=== PATIENT | female | born 1930 | race Caucasian/White ===

== ENCOUNTER 2016-11-10 19:47 | Inpatient (IN) | payer OTHER ==
[~2016-11-10] VITALS: Ht 160 cm; Wt 54.4 kg
--- NOTE | ~2016-11-10 | EKG ---
[address] [address] ELECTROCARDIOGRAM REPORT Name: GLENNA BLAIR Room #: [facility] IN M.R.#: [id number] Admission: 11/10/16 Attend Phys: Estela Pratt Discharge: 11/13/16 Date of : 30 Report #: [id number] THIS REPORT FOR: //name// [facility] Test Date: 2016-11-10 Test Time: 20:14:20 Pat Name: Glenna Blair Department: Room: [facility] Gender: F [employer] Helper Machine: Gracia dexter : 1930 Requested By: Deirdre Cazares Order Number: [id number] MD: Alfredo Sal Measurements Intervals [place] Rate: 71 P: 58 SD: 177 QRS: 38 QRSD: 87 T: 21 QT: 415 QTc: 451 Interpretive Statements Sinus rhythm Nonspecific ST segment abnormality No previous ECG available for comparison Electronically Signed On 11-11-2016 12:53:04 CDT by Alfredo Sal [email or web address] <ELECTRONICALLY SIGNED> By: Alfredo Sal MD, [facility] 11/11/16 1253 13 13 Alfredo Sal MD, FACC /EPI
--- NOTE | ~2016-11-10 | D ---
[facility] [place] [address] DISCHARGE SUMMARY Name: CARMEN JEAN Room #: 407-P [facility] IN M.R.#: [id number] Admission: 11/10/16 Attend Phys: Estela Pratt Discharge: 11/13/16 Date of : 30 Report #: [id number] THIS REPORT FOR: //name// CC: Francis Weber FINAL DIAGNOSIS: 1. Left flank pain. HOSPITAL COURSE: She was admitted with left flank pain. Studies were obtained and she was seen by Dr. Rudd. Urine culture just grew normal multi-bacteria and no treatment was . There was a question of a left pulmonary nodule on CT of the abdomen that was unremarkable. CT of the chest was obtained. Please see that result. There seemed to be some chronic changes in the left lower lobe, but no distant mass or lymphadenopathy was identified. Dr. Rudd's recommendation was to obtain study from [facility] done in the past regarding her remote history of left renal cell carcinoma, nephrectomy and compare for any changes. He felt these are likely more chronic in nature. Her pain was improved with physical therapy and as needed doses of hydrocodone. PHYSICAL EXAMINATION: GENERAL: On the day of discharge, she was awake and alert. VITAL SIGNS: Stable. LUNGS: Clear. HEART: Regular. ABDOMEN: Soft. She had some mild tenderness in the soft issue of the left flanks between the ribs and iliac wing. EXTREMITIES: Showed no edema. DISPOSITION: Will be discharged to home with home health. DIET AND ACTIVITY: As tolerated. FOLLOWUP: With Dr. Weber and Dr. Rudd in 2 weeks. MEDICATIONS: Only new medication is hydrocodone 5 mg p.r.n. pain. <ELECTRONICALLY SIGNED> By: Jesse Zelaya MD 11/14/16 1003 0912 1941 Jesse Zelaya MD /nt
--- NOTE | ~2016-11-10 | H ---
[facility] [place] [address] HISTORY AND PHYSICAL Name: CARMEN JEAN Estela Room #: 407-P [facility] IN M.R.#: [id number] Admission: 11/10/16 Attend Phys: Estela Pratt Discharge: 11/13/16 Date of : 30 Report #: [id number] THIS REPORT FOR: //name// CC: Francis Weber HISTORY OF PRESENT ILLNESS: This is an 86-year-old female with known history remotely of hypernephroma and has had some suspicious areas off and on over the last few years and maybe even some lung nodules, but due to her age, we did not proceed with biopsy or further intervention. She has been doing very well up until yesterday when she really had the relatively sudden onset of left chest pain. There was no trauma associated with this and the pain became so severe that she came to the emergency room and was subsequently admitted. There were no other associated symptoms. PAST MEDICAL HISTORY: Significant for hypertension. She has had renal cell carcinoma many years ago. She has had a hysterectomy in the past. MEDICATIONS: Well documented in the record. REVIEW OF SYSTEMS: Negative. FAMILY HISTORY: Negative. SOCIAL HISTORY: She is now, her recently. PHYSICAL EXAMINATION: GENERAL: Shows her to be awake, alert and oriented. She is in no distress. HEENT: Otherwise, negative. NECK: Supple, without thyromegaly or adenopathy. CHEST: Clear. On more detailed examination of her left chest, she had point tenderness in the posterior ribs in the lower aspect of her ribcage. CARDIOVASCULAR EXAMINATION: Shows a regular rate and rhythm, without murmur. ABDOMEN: Soft and nontender. EXTREMITIES: No cyanosis, clubbing or edema. NEUROLOGICAL EXAMINATION: Nonfocal. LABORATORY DATA: EKG was negative. Laboratory parameters were normal. Chest x-ray was not done, but a CT image showed the left nephrectomy and left adrenalectomy findings with an area in her left lung suspicious for pulmonary metastasis. 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 PLAN: Left rib detailed films, chest x-ray and we will involve the oncology [place] [id number] HISTORY AND PHYSICAL Name: CARMEN JEAN Estela Room #: 407-P [facility] IN .R.#: [id number] Admission: 11/10/16 Attend Phys: Estela Pratt Discharge: 11/13/16 Date of : 30 Report #: [id number] team and I have to set up a plan as to whether or not she needs biopsy or whether we are going to proceed more of on a palliative care programme. <ELECTRONICALLY SIGNED> By: Francis Weber MD 11/24/16 1037 [facility] 1305 Francis Weber MD /tomas
--- NOTE | ~2016-11-10 | HC ---
[facility] [place] [address] CONSULTATION Name: CARMEN JEAN Room #: 407-P [facility] IN M.R.#: [id number] Admission: 11/10/16 Attend Phys: Estela Pratt Discharge: 11/13/16 Date of : 30 Report #: [id number] THIS REPORT FOR: //name// CC: Gonzalo Ruano MD REASON FOR CONSULTATION: History of kidney cancer and flank pain. HISTORY OF PRESENT ILLNESS: The patient is a very pleasant 86-year-old female who I last saw on 07/24/2016. The patient has a several, I think about, 3-5 day history of flank pain, some on the right, now most recently on the left that has been fairly sharp in nature when she moves in certain direction. She is not aware of any trauma and this was fairly sudden onset. No fevers, no chills. No nausea, no vomiting, no bowel or bladder difficulties. She does feel that her abdomen is little bit more poochy lately. She has been a bit more gassy as far as passing gas from below, not belching, though she has felt otherwise pretty good. Her back in August for which we expressed our condolences. He had had some ostomy troubles and bladder difficulties. PAST MEDICAL HISTORY: Notable for history of left-sided kidney mass which was resected 01/02/2011 with a hand assisted laparoscopic left radical nephrectomy. 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 Margins were free. This is a T3a Nx M0 cancer. The patient then had a CT chest, abdomen and pelvis at [facility] on 07/23/2014. With comparison I believe to 2011, pancreas was described as normal. There were 3 overt hypervascular lesions arising within the pancreas at that time, the largest measuring 16 mm and other is 10 mm. On 08/30/2015, the patient had a repeat CT abdomen and pelvis showing the hypervascular lesions which had increased in size. There was also thought to be some ductal dilatation at that time. The patient met with the surgeon on 12/01/2015. The patient was not interested in surgical intervention at that time. I had seen the patient for the first time on 12/15/2015 and at that time we talked about maybe whether to do an endoscopic ultrasound and biopsy or watch and wait. At that time, because of her 's health issues they wished to wait and watch. The patient then had reviewed her films with her on 02/21/2016 and then again on 06/26/2016, another CAT scan was performed. This showed that the 4 hyperenhancing pancreatic lesions were unchanged in size though there was a small lung lesion, which I think had gone from 1 cm to now 1.4. This was reviewed with the patient and her family on 07/24/2016 and again at that time, they did not wish any intervention. PAST MEDICAL HISTORY: Also notable for hypertension. SOCIAL HISTORY: The patient had not been a smoker or drinker. Recently her had . FAMILY HISTORY: Noncontributory. [facility] [address] [place] [address] CONSULTATION Name: CARMEN JEAN Room #: 407-P [facility] IN M.R.#: [id number] Admission: 11/10/16 Attend Phys: Estela Pratt Discharge: 11/13/16 Date of : 30 Report #: [id number] PHYSICAL EXAMINATION: GENERAL: The patient appears her stated age. Mood, she is very pleasant and alert. She does wince in pain when the pain grabs her on the left flank. NEUROLOGIC: She is moving all extremities though she describes being weak. HEENT: Oropharynx is clear. LUNGS: Have clear respirations. HEART: Regular rate. LYMPHATICS: No enlarged lymph nodes in the supraclavicular, cervical, axillary region. The patient does not appear to have any pain on compression of the ribs anterior or transversely. Does have some discomfort on very light touch of the left lower flank which has hardly not even touched the ribs. Of note, the patient had recent plain films of the ribs, which have not revealed any cracks or destructive lesions. ABDOMEN: Soft, little bit distended but not much. EXTREMITIES: Without clubbing, cyanosis. VITAL SIGNS: Height is 5 feet 3 inches, which is 160 cm, weight which is 120 pounds or 54.7 kilograms. Blood pressure is 126/57, O2 sat 96%, respirations 16, pulse 63 and temperature is 97.9. LABORATORY DATA: Here have a CBC without white count of 6.6, hemoglobin 12.7, platelets of 276, fairly normal differential. BNP was fairly normal with a creatinine of 1.2, alk phos of 145. The CT of abdomen and pelvis done here talked about the surgical changes from the left nephrectomy. Note that she had no prior films done here. We will get our [facility] films for comparison. I have also ordered a CT chest to better take a look at the lung lesion. Urinalysis did show 16-25 moderate white cells, 0-3 squamous cells, few bacteria. I believe that the cultures now are growing E. coli, beta strep group B and also enterococcus. Chest x-ray, nonspecific changes other than degenerative changes. MEDICATIONS: Here in the hospital currently include Lovenox 30 mg subcutaneous, hydrocodone 1 tab q. 4 p.r.n., fentanyl IV p.r.n. ASSESSMENT AND PLAN: 1. History of left renal cell carcinoma resected, may be recurrent, not biopsy proven, but does have lesions in the pancreas and the lung. We will order CT scan from for comparison to one done over the weekend. We will also order CT chest with evaluation of chest. We may need to get scan from outside from [facility] from 07/23/2014 for comparison. 2. Left flank pain maybe muscular in nature. We will ask physical therapy to see the patient. We will also ask for heating pad. May give consideration to Flexeril 2.5 mg b.i.d., but we will defer to admitting team. 3. Hypertension. Meds as needed. [facility] [address] [place] [address] CONSULTATION Name: CARMEN JEAN Room #: 407-P [facility] IN M.R.#: [id number] Admission: 11/10/16 Attend Phys: Estela Pratt Discharge: 11/13/16 Date of : 30 Report #: [id number] 4. Two bacteria in urine. We will defer to others whether this needs treatment. We will follow with you. <ELECTRONICALLY SIGNED> By: Rodriguez Rudd MD 11/13/16 0739 0827 1231 Rodriguez Rudd MD /tomas
[~2016-11-10 19:47] MED LIST: BACITRACIN15 GM TOP; CARDIZEM CD120 MG PO; COUMADIN 2 MG TA2 M1 PO; FOSAMAX 70 MG T70 M1 PO; KAPVAY0.1 MG PO; PERCOCET 5-3251 EACH PO; TOPICORT 0.25%15 G1 TOP; TRIAMCINOLONE TOP; TUMS PO; VITAMIN D1000 UNI1 PO
[2016-11-10 19:57] VITALS: BP 147/75
[2016-11-10 20:51] LABS: ABSOLUTE NEUTROPHILS 4.3 thou/uL (1.4-8.2); BASOPHILS 0.8 % (0.0-2.0); EOSINOPHILS 1.4 % (0.0-3.0); HEMATOCRIT 37.5 % (37.0-47.0); HEMOGLOBIN 12.7 gm/dL (12.0-15.0); LYMPHOCYTES 22.9 % (24.0-44.0); MCH 30.7 pg (26.0-34.0); MCHC 33.8 g/dL (28.0-37.0); MCV 90.9 fL (80.0-100.0); MONOCYTES 9.1 % (1.0-8.0); PLATELET COUNT 276 thou/uL (150-400); POLYS 65.8 % (36.0-66.0); RBC 4.13 mil/uL (4.20-5.00); RDW 14.2 % (10.5-14.5); WBC 6.6 thou/uL (4.0-11.0)
[2016-11-10 21:01] LABS: MANUAL DIFF NO
[2016-11-10 21:10] LABS: ANION GAP 7 mmol/L (7-16); BUN 29 mg/dL (7-18); CALCIUM 9.3 mg/dL (8.5-10.1); CHLORIDE 107 mmol/L (98-107); CO2 28 mmol/L (21-32); CREATININE 1.2 mg/dL (0.6-1.0); GLUCOSE 142 mg/dL (74-106); SODIUM 142 mmol/L (136-145)
[2016-11-10 21:14] LABS: ALBUMIN 3.6 g/dL (3.4-5.0); ALKALINE PHOSPHATASE 145 U/L (46-116); DIRECT BILIRUBIN < 0.1 mg/dL (<0.1-0.3); MAGNESIUM 1.9 mg/dL (1.8-2.4); SGOT 23 U/L (15-37); SGPT 31 U/L (30-65); TOTAL BILIRUBIN 0.3 mg/dL (<0.1-1.0); TOTAL PROTEIN 7.1 g/dL (6.4-8.2)
[2016-11-11 00:11] VITALS: BP 143/62
[2016-11-11 01:10] VITALS: BP 133/69
[2016-11-11 04:40] VITALS: BP 128/64
[2016-11-11 05:18] LABS: URINE BILIRUBIN NEGATIVE (Negative); URINE BLOOD NEGATIVE (Negative); URINE COLOR YELLOW; URINE GLUCOSE-RANDOM* NEGATIVE (Negative); URINE KETONES NEGATIVE (Negative); URINE LEUKOCYTES-REFLEX 2+ (Negative); URINE PROTEIN (DIPSTICK) NEGATIVE (Negative); URINE SPECIFIC GRAVITY 1.015 (1.003-1.035); URINE UROBILINOGEN 0.2 E.U./dl (0.2-1.0)
[2016-11-11 05:29] LABS: CASTS None Seen /LPF (None Seen); SQUAMOUS None Seen /LPF (0-3)
[2016-11-11 05:30] LABS: CRYSTALS None Seen /LPF (None Seen); URINE RBC None Seen /HPF (0-2); WBC CLUMPS Few (None Seen)
[2016-11-11 07:47] VITALS: BP 137/59
[2016-11-11 16:18] VITALS: BP 117/72
[2016-11-11 20:05] VITALS: BP 121/61
[2016-11-12 04:13] VITALS: BP 126/57
[2016-11-12 08:50] VITALS: BP 136/64
[2016-11-12 15:47] VITALS: BP 117/62
[2016-11-12 19:40] VITALS: BP 126/75
[2016-11-13 06:10] VITALS: BP 125/49
[2016-11-13 08:28] VITALS: BP 134/66
[2016-11-13] MEDS ORDERED: HYDROCODON-ACE1 EAC7 PO (09:07)
[2016-11-13 11:03] VITALS: BP 134/66
[2016-11-13 12:45] VITALS: BP 134/66
== END 2016-11-13 11:44 | disposition home or self-care (01) | DRG 392 ==
LOC: ER 19:47 → EROBS 23:25 → 4N 23:25
PROVIDERS: Emergency Medicine; Internal Medicine
DX: R10.9 Unspecified abdominal pain (principal); I10 Essential (primary) hypertension; Z90.5 Acquired absence of kidney; Z90.710 Acquired absence of both cervix and uterus; Z85.528 Personal history of other malignant neoplasm of kidney
CPT/HCPCS: 10091

== ENCOUNTER 2016-12-06 22:07 | Observation (INO) | payer OTHER ==
[~2016-12-06] VITALS: Ht 160 cm; Wt 57.6 kg
--- NOTE | ~2016-12-06 | CNG ---
[facility] [address] [place] [address] CYTO-NONGYN REPORT PROCEDURE Name: CARMEN JEAN Room #: 545-P [facility] Alannah BillyR.#: [id number] Admission: 12/07/16 Date of : 30 Discharge: Report #: [id number] Path Case #: [id number] PATHOLOGY REPORT DRAFT COLLECTION DATE: 12/07/2016 RECEIVED DATE: 12/07/2016 SPECIMEN(S) RECEIVED: A.Right knee fluid aspiration
--- NOTE | ~2016-12-06 | H ---
[facility] [place] [address] HISTORY AND PHYSICAL Name: CARMEN JEAN Room #: 545-P [facility]#: [id number] Admission: 12/07/16 Attend Phys: Sheron Oliva MD Discharge: Date of : 30 Report #: [id number] THIS REPORT FOR: //name// CC: Francis Oliva DATE OF SERVICE: 12/07/2016 CHIEF COMPLAINT: Right knee pain. HISTORY OF PRESENT ILLNESS: The patient is an 86-year-old female who fell on her bathtub a week ago and was complaining of knee pain. She had some swelling and pain in her knee and was really unable to stand or walk. She had some pain in the right side of her lower back, but that seems improved. Symptoms just got worse yesterday and she was really unable to bear weight due to pain and was directed to the emergency room. X-rays are unremarkable. PAST MEDICAL HISTORY: Hypertension, renal cell carcinoma with a previous left nephrectomy. She has had a hysterectomy. FAMILY HISTORY: Noncontributory. SOCIAL HISTORY: She lives alone. No chronic alcohol or tobacco use. ALLERGIES: No known drug allergies. MEDICATIONS: Calcium, Percocet, clonidine, and Coumadin. REVIEW OF SYSTEMS: She denies headache, chest pain, shortness of breath, abdominal pain, nausea, vomiting, diarrhea, constipation, dysuria, or syncope. OBJECTIVE: VITAL SIGNS: Per the nursing note. GENERAL: She is awake and alert, in no distress. LUNGS: Clear. HEART: Regular. ABDOMEN: Soft, normoactive bowel sounds. EXTREMITIES: There is a soft effusion on the right knee, no bridging. NEUROLOGIC: Global strength 3/5 throughout. ASSESSMENT: 1. Acute right knee pain with effusion. 2. Osteoarthritis of the right knee. 3. Acute low back pain. 4. Accidental fall. 5. Hypertension. [facility] [address] [place] [address] HISTORY AND PHYSICAL Name: CARMEN JEAN Room #: 545-P [facility]#: [id number] Admission: 12/07/16 Attend Phys: Sheron Oliva MD Discharge: Date of : 30 Report #: [id number] PLAN: I will ask orthopedic service to consider of the right knee and/or steroid injection. <ELECTRONICALLY SIGNED> By: Jesse Zelaya MD 12/07/16 1630 0911 0947 Jesse Zelaya MD /nt
[~2016-12-06 22:07] MED LIST changes: +HYDROCODON-ACE1 EAC7 PO
[2016-12-06 22:18] VITALS: BP 114/68
[2016-12-07 02:07] VITALS: BP 126/71
[2016-12-07 02:11] LABS: ABSOLUTE NEUTROPHILS 4.6 thou/uL (1.4-8.2); BASOPHILS 0.9 % (0.0-2.0); EOSINOPHILS 1.3 % (0.0-3.0); HEMATOCRIT 33.8 % (37.0-47.0); HEMOGLOBIN 11.5 gm/dL (12.0-15.0); LYMPHOCYTES 22.1 % (24.0-44.0); MCH 30.8 pg (26.0-34.0); MCHC 33.9 g/dL (28.0-37.0); MCV 90.9 fL (80.0-100.0); MONOCYTES 11.5 % (1.0-8.0); PLATELET COUNT 252 thou/uL (150-400); POLYS 64.2 % (36.0-66.0); RBC 3.72 mil/uL (4.20-5.00); RDW 13.7 % (10.5-14.5); WBC 7.2 thou/uL (4.0-11.0)
[2016-12-07 02:15] LABS: MANUAL DIFF NO
[2016-12-07 02:17] LABS: CALCIUM 9.7 mg/dL (8.5-10.1); CREATININE 1.2 mg/dL (0.6-1.0); POTASSIUM 3.8 mmol/L (3.5-5.1)
[2016-12-07 04:50] VITALS: BP 110/62
[2016-12-07 05:50] VITALS: BP 178/83
[2016-12-07 07:21] VITALS: BP 120/68
[2016-12-07 14:25] LABS: COLOR YELLOW; TOTAL VOLUME 60 mL
[2016-12-07 14:26] LABS: BF RBC 3626; CLARITY CLOUDY
[2016-12-07 14:27] LABS: BF NUCLEATED CELLS 5187; MANUAL DIFF YES
[2016-12-07 15:38] LABS: BF MACROPHAGE 8; BF NEUTROPHILS 86
[2016-12-07 16:09] VITALS: BP 111/64
[2016-12-07 19:41] VITALS: BP 112/64
[2016-12-08 05:16] VITALS: BP 134/71
[2016-12-08] MEDS ORDERED: PREDNISONE 20 M20 M1 PO (07:48)
[2016-12-08] MEDS ORDERED: HYDROCODON-ACE1 EAC7 PO (07:48)
[2016-12-08] MEDS ORDERED: ACETAMINOPHEN325 M1 PO (07:48)
[2016-12-08 07:54] VITALS: BP 119/50
[2016-12-08 09:48] VITALS: BP 119/50
== END 2016-12-08 14:00 ==
LOC: ER 22:07 → EROBS 12-07 01:33 → 5S 12-07 02:11
PROVIDERS: Emergency Medicine; Internal Medicine
DX: M17.11 Unilateral primary osteoarthritis, right knee (principal); R26.9 Unspecified abnormalities of gait and mobility; I10 Essential (primary) hypertension; M54.5 Low back pain; Z79.899 Other long term (current) drug therapy; Z85.528 Personal history of other malignant neoplasm of kidney

== ENCOUNTER 2018-07-18 21:51 | Emergency (ER) | payer OTHER ==
[~2018-07-18] VITALS: Ht 157.5 cm; Wt 54.4 kg
[~2018-07-18 21:51] MED LIST changes: +ACETAMINOPHEN325 M1 PO; +PREDNISONE 20 M20 M1 PO
[2018-07-18] MEDS ORDERED: COZAAR 25 MG TA25 M1 PO (22:15)
[2018-07-18 22:53] LABS: HEMATOCRIT 39.9 % (37.0-47.0); HEMOGLOBIN 13.5 gm/dL (12.0-15.0); MCH 30.9 pg (26.0-34.0); MCHC 33.9 g/dL (28.0-37.0); MCV 91.3 fL (80.0-100.0); PLATELET COUNT 274 thou/uL (150-400); RBC 4.37 mil/uL (4.20-5.00); RDW 14.4 % (10.5-14.5)
[2018-07-18 23:00] LABS: CALCIUM 9.5 mg/dL (8.5-10.1); CREATININE 1.4 mg/dL (0.6-1.0); POTASSIUM 3.6 mmol/L (3.5-5.1)
[2018-07-18 23:18] LABS: ABSOLUTE NEUTROPHILS 5.8 thou/uL (1.4-8.2)
[2018-07-18 23:20] LABS: PLATELET ESTIMATE NORMAL
[2018-07-19 00:40] LABS: CLARITY CLOUDY; COLOR YELLOW; TOTAL VOLUME 30 mL
[2018-07-19 01:47] LABS: BF NUCLEATED CELLS 2495; BF RBC 156 /uL; SOURCE KNEE JOINT
[2018-07-19 02:02] LABS: SOURCE KNEE JOINT
[2018-07-19 02:05] LABS: BF CRYSTALS No Crystals seen
[2018-07-19 02:12] VITALS: BP 140/63
[2018-07-19 02:29] LABS: BF MACROPHAGE 9; BF NEUTROPHILS 87
== END 2018-07-19 02:26 | disposition home or self-care (01) ==
LOC: ER 21:51
PROVIDERS: Student in an Organized Health Care Education/Training Program
DX: M25.461 Effusion, right knee (principal); I10 Essential (primary) hypertension; Z85.528 Personal history of other malignant neoplasm of kidney; Z90.5 Acquired absence of kidney; Z90.710 Acquired absence of both cervix and uterus

== ENCOUNTER 2019-07-30 13:18 | Inpatient (IN) | payer OTHER ==
[~2019-07-30] VITALS: Ht 157.5 cm; Wt 52.2 kg
[~2019-07-30 13:18] MED LIST changes: +COZAAR 25 MG TA25 M1 PO
[2019-07-30 13:20] VITALS: BP 145/74
--- NOTE | 2019-07-30 14:56 | NUR ---
PERIPHERAL STICK DONE AND BLOOD SENT TO LAB IV LINE UNABLE TO DRAW BLOOD
[2019-07-30 15:04] LABS: HEMATOCRIT 38.3 % (37.0-47.0); HEMOGLOBIN 12.5 gm/dL (12.0-15.0); MCH 30.5 pg (26.0-34.0); MCHC 32.7 g/dL (28.0-37.0); MCV 93.3 fL (80.0-100.0); PLATELET COUNT 357 thou/uL (150-400); RBC 4.11 mil/uL (4.20-5.00); RDW 15.2 % (10.5-14.5); WBC 5.6 thou/uL (4.0-11.0)
[2019-07-30 15:18] LABS: CALCIUM 10.2 mg/dL (8.5-10.1); CREATININE 1.3 mg/dL (0.6-1.0); POTASSIUM 4.2 mmol/L (3.5-5.1)
[2019-07-30 15:28] LABS: PROTIME 10.4 Seconds (9.3-11.4)
[2019-07-30 15:57] LABS: ABSOLUTE NEUTROPHILS 4.1 thou/uL (1.4-8.2); PLATELET ESTIMATE NORMAL
[2019-07-30] MEDS ORDERED: ELIQUIS2.5 MG PO (16:15)
[2019-07-30] MEDS ORDERED: LOSARTAN-HCTZ1 EAC3 PO (16:15)
[2019-07-30] MEDS ORDERED: HYDROCODON-ACE1 EAC8 PO (16:16)
[2019-07-30 17:34] VITALS: BP 130/60
[2019-07-30 18:20] VITALS: BP 129/62
[2019-07-30 19:20] VITALS: BP 131/60
[2019-07-31 05:02] VITALS: BP 147/83
--- NOTE | 2019-07-31 07:18 | NUR ---
PATIENT ADMITTED TO UNIT ABOUT 1830. PATIENT ALERT AND ORIENTED X4. C/O PAIN OF 04/23. CALLED DR. Ashly MENDEZ FOR STRONGER PAIN MED. EVERYTHING TRIED HAS NOT HAD ANY EFFECT ON HER PAIN. PATIENT UP TO BSC WITH ASSIST OF 1. SLEPT VERY LITTLE THIS SHIFT. ABD HAS A BULDGE LOWER MID ABD. TENDER TO TOUCH.
[2019-07-31 08:41] VITALS: BP 127/53
--- NOTE | 2019-07-31 13:04 | NUR ---
ASSESSMENT-PT LIVES IN HER HOME AND SON LUCIA LIVES WITH HER. PT HAS TOTAL OF 8 CHILDREN HERE IN THE AREA AND 3 OUT OF STATE. PT HAS A DTR-IN-LAW THAT IS A RN THAT HAS BEEN ASSISTING HER WEEKLY WITH A SHOWER. PT HAS A TUB/SHOWER AND A LIFT ASSIST TO GET IN/OUT OF THE TUB. PT HAS A STAIRGLIDE TO GET IN THE HOME AND STAIRGLIDE TO MAIN LEVEL OF THE HOME. PT HAS A TRANSPORT WC AND REG. WC. SHE USES A WALKER TO GET AROUND. OLDEST SON HILL IN ROOM AND HE TELLS ME THEY WERE IN THE PROCESS OF TRYING TO GET [facility] ARRANGED AND WERE WANTING A BATH AIDE. [facility] BUT SHE SAYS THEY ARE STILL WORKING OUT THE KINKS WITH IT. FOLLOWING TO ASSIST WITH DC PLANNING.
[2019-07-31 19:30] VITALS: BP 124/51
--- NOTE | 2019-07-31 19:35 | NUR ---
Assumed care of pt at 0700. Pt a&ox4. Prn pain meds administered per pt request. MRI ordered. Ortho consulted. Family at bedside. NPO after midnight. Report given to tyler SMITH.
[2019-08-01 04:30] VITALS: BP 91/39
[2019-08-01 05:35] LABS: ALBUMIN 3.2 g/dL (3.4-5.0); CALCIUM 9.5 mg/dL (8.5-10.1); CREATININE 1.3 mg/dL (0.6-1.0); POTASSIUM 4.6 mmol/L (3.5-5.1); TOTAL BILIRUBIN 0.4 mg/dL (<0.1-1.0); TOTAL PROTEIN 6.8 g/dL (6.4-8.2)
--- NOTE | 2019-08-01 06:03 | NUR ---
PT IS VERY PLEASANT. UP WITH SBA TO THE BSC. PT HAS MILD R HIP PAIN AND ROCXANOL GIVEN X 1 WITH RELIEF. NPO AFTER MIDNIGHT.
[2019-08-01 08:00] VITALS: BP 97/71
[2019-08-01 08:10] VITALS: BP 105/52
--- NOTE | 2019-08-01 08:20 | H ---
[facility] [place] [address] HISTORY AND PHYSICAL Name: CARMEN JEAN Room #: 446-P [facility] IN .R.#: [id number] Admission: 07/30/19 Attend Phys: Estela Pratt Discharge: Date of : 30 Report #: [id number] THIS REPORT FOR: //name// CC: Francis Weber DATE OF SERVICE: 07/30/2019 CHIEF COMPLAINT: Right hip pain. HISTORY OF PRESENT ILLNESS: The patient is an 89-year-old female who was admitted through the Emergency Room with right hip fracture. She has a known history of metastatic renal cell carcinoma and was experiencing pain in the right hip. She underwent an outpatient CT scan of the hip earlier yesterday at [facility]. This revealed a proximal right femur fracture with mild displacement. She was admitted through the Emergency Room. PAST MEDICAL HISTORY: Recent DVT of the right lower extremity. She has been on Eliquis. Renal cell carcinoma, hypertension. PAST SURGICAL HISTORY: She has had a nephrectomy and hysterectomy. FAMILY HISTORY: Noncontributory. SOCIAL HISTORY: She is living at home. Supportive family. No chronic alcohol or tobacco use. ALLERGIES: None. MEDICATIONS: Hydrocodone. Eliquis 2.5 mg twice a day, Hyzaar 100/25 mg daily. REVIEW OF SYSTEMS: Other than right hip pain, denies headache, chest pain, shortness of breath, dysuria, myalgias, syncope. OBJECTIVE: VITAL SIGNS: Temperature 36.6, pulse 77, respirations 17, blood pressure 127/53, O2 sat 94% on room air. GENERAL: She is awake and alert, in no distress. LUNGS: Clear. HEART: Regular. ABDOMEN: Soft, normoactive bowel sounds. EXTREMITIES: No edema, 2+ pulses in the feet. NEUROLOGIC: Cranial nerves intact. Speech is fluent. She is alert and oriented. LABORATORY DATA: Creatinine is 1.3, calcium is 10.2. CBC is unremarkable. [address] [address] HISTORY AND PHYSICAL Name: CARMEN JEAN Room #: 446-[facility] IN [facility].#: [id number] Admission: 07/30/19 Attend Phys: Estela Pratt Discharge: Date of : 30 Report #: [id number] ASSESSMENT: 1. Right proximal femur fracture. 2. Metastatic renal cell carcinoma. 3. Hypercalcemia. 4. Hypertension. PLAN: Orthopedic group has been consulted to consider IM nail stabilization of the hip fracture. I will await their opinion. Otherwise, home medications to continue. We can discontinue the Eliquis if surgery is planned. I am going to discontinue her hydrochlorothiazide, which could be contributing to slight prerenal status. We will have to watch her calcium as this is likely related to her bony metastases. <ELECTRONICALLY SIGNED> By: Jesse Zelaya MD 08/01/19 0820 1220 1233 MD dany Roberts
[2019-08-01 09:56] VITALS: BP 97/71
--- NOTE | 2019-08-01 16:14 | NUR ---
PT ASSESSED AT START OF SHIFT. DR. MARSHALL IN EARLY TO SEE PT AND TALKED W/ DR. ALVARENGA RE POTENTIAL SURGERY. DISCUSSED W/ PT AND HER SON AND DECISION MADE TO SEE PT OVER TO WHERE SHE IS RECEIVING HER CANCER TREATMENT TO HAVE CONSULTATION W/ ORTHO DRS THERE. PT TAKING ROXINOL W/ SOME RELIEF BUT STARTING TO HAVE SPASMS NOW WHICH IS MAKING PAIN WORSE. REPORT CALLED TO RN AND AMBULANCE ON THEIR WAY NOW.
== END 2019-08-01 19:10 | disposition short-term general hospital (02) | DRG 543 ==
LOC: ER 13:18 → 4S 17:55 → EROBS 17:55 → 4S 18:19
PROVIDERS: Internal Medicine Geriatric Medicine; Nurse Practitioner; ADMIT Internal Medicine
DX: M84.551A Pathological fracture in neoplastic disease, right femur, initial encounter for fracture (principal); C22.8 Malignant neoplasm of liver, primary, unspecified as to type; C64.9 Malignant neoplasm of unspecified kidney, except renal pelvis; E83.52 Hypercalcemia; I10 Essential (primary) hypertension; Z90.710 Acquired absence of both cervix and uterus; Z79.891 Long term (current) use of opiate analgesic; Z86.718 Personal history of other venous thrombosis and embolism; Z79.01 Long term (current) use of anticoagulants; Z90.5 Acquired absence of kidney; Z79.899 Other long term (current) drug therapy
CPT/HCPCS: 10195